=== PATIENT | female | born 1955 | race Caucasian/White ===

== ENCOUNTER 2022-04-13 05:46 | Day surgery (SDC) | payer MEDICARE, OTHER ==
[2022-04-13] MEDS ORDERED: Acetaminophen 500 MG Tab PO ONE (06:00)
[2022-04-13] MEDS ORDERED: Dextrose 5%-Lactated Ringers 1,000 ML IV SCH (06:30)
[2022-04-13] MEDS ORDERED: cefOXitin 2 GM in Sodium Chloride 0.9% 50 ML IV ONE (07:00)
[2022-04-13] MEDS ORDERED: Lidocaine 1% with EPINEPHrine 1:100,000 50 ML MDV ONE (07:02)
[2022-04-13] MEDS ORDERED: Bupivacaine 0.5% 50 ML MDV ONE (07:02)
[2022-04-13] MEDS ORDERED: fentaNYL 250 MCG/5 ML SDV ONE ×2 (07:16→08:49)
[2022-04-13] MEDS ORDERED: Glycopyrrolate 0.2 MG/ML 5 ML MDV ONE (07:17)
[2022-04-13] MEDS ORDERED: Dexamethasone 4 MG/ML SDV ONE (07:17)
[2022-04-13] MEDS ORDERED: Rocuronium 50 MG/5 ML Vial ONE (07:17)
[2022-04-13] MEDS ORDERED: Ondansetron 4 MG/2 ML SDV ONE (07:17)
[2022-04-13] MEDS ORDERED: Neostigmine Methylsulfate 1 MG/ML 5 ML Syringe ONE (07:17)
[2022-04-13] MEDS ORDERED: Propofol 200 MG/20 ML SDV ONE (07:17)
[2022-04-13] MEDS ORDERED: Succinylcholine 200 MG/10 ML MDV ONE (07:17)
[2022-04-13] MEDS ORDERED: Ketamine 500 MG/5 ML MDV IV SCH (08:00)
[2022-04-13] MEDS ORDERED: Ketamine 18 MG in Sodium Chloride 0.9% 19.82 ML IV SCH (08:00)
[2022-04-13] MEDS ORDERED: Indocyanine Green 25 MG SDV ONE (08:47)
[2022-04-13] MEDS ORDERED: Labetalol 20 MG/4 ML Syringe ONE (09:01)
[2022-04-13] MEDS ORDERED: Ketorolac 30 MG/ML SDV ONE (09:30)
[2022-04-13] MEDS ORDERED: traMADol 50 MG Tab PO ONE (13:20)
[2022-04-13 14:07] VITALS: BP 147/56; PULSE 60
== END 2022-04-13 14:40 | disposition home or self-care (01) ==
LOC: JP.SDS 05:46
PROVIDERS: ATTEND Surgery
DX: K80.10 Calculus of gallbladder with chronic cholecystitis without obstruction (principal); E66.01 Morbid (severe) obesity due to excess calories; G43.909 Migraine, unspecified, not intractable, without status migrainosus; I11.0 Hypertensive heart disease with heart failure; I50.9 Heart failure, unspecified; G47.30 Sleep apnea, unspecified; E55.9 Vitamin D deficiency, unspecified; E53.8 Deficiency of other specified B group vitamins; K90.9 Intestinal malabsorption, unspecified; M19.90 Unspecified osteoarthritis, unspecified site; Z88.5 Allergy status to narcotic agent; Z88.6 Allergy status to analgesic agent; Z79.899 Other long term (current) drug therapy; Z98.890 Other specified postprocedural states
CPT/HCPCS: 47562; 88304; 93005; 93010; A9270; J0171; J0330; J0694; J1100; J1885; J2405; J2704; J2710; J2795; J3010; J3490; J7121